=== PATIENT | female | born 1980 | race African-American/Black ===

== ENCOUNTER 2020-01-15 02:54 | Emergency (ER) | payer MEDICAID ==
[~2020-01-15] VITALS: Ht 167.6 cm; Wt 59.0 kg
[2020-01-15 03:00] VITALS: BP 124/72
== END 2020-01-15 03:46 | disposition left against medical advice (07) ==
LOC: ER 02:54
DX: Z53.21 Procedure and treatment not carried out due to patient leaving prior to being seen by health care provider (principal)